=== PATIENT | male | born 1980 | race Caucasian/White ===

== ENCOUNTER 2017-04-08 07:50 | Inpatient (IN) | payer BC ==
[~2017-04-08 07:50] MED LIST: BUPIVACAINE 0.5% (SDV) 30 ML, morphine SULFATE (PF) 8 MG, EPINEPHrine 0.3 MG, KETOROLAC... IRR; SOD CHLORIDE 0.9% 100 ML, TRANEXAMIC ACID 3,000 MG IRR
[2017-04-08] MEDS: DEXAMETHASONE 1 MG TAB PO (08:45)
[2017-04-08] MEDS: GABAPENTIN 300 MG CAP PO ×2 (08:45→21:02)
[2017-04-08] MEDS: traMADol 50 MG TAB PO (08:45)
[2017-04-08] MEDS ORDERED: morphine SULFATE/PF (10 MG/10 ML) INJ (09:53)
[2017-04-08] MEDS ORDERED: metroNIDAZOLE 500 MG/NS (PMX) 100 ML IVPB (09:53)
[2017-04-08] MEDS ORDERED: MIDAZOLAM 1 MG/ML 2 ML INJ ×2 (09:59)
[2017-04-08] MEDS ORDERED: LIDOCAINE 2% (SDV) 5 ML INJ (10:00)
[2017-04-08] MEDS ORDERED: ROCURONIUM 50 MG INJ (10:00)
[2017-04-08] MEDS ORDERED: PROPOFOL 20 ML (10:00)
[2017-04-08] MEDS: CA CHLORIDE 10% 10 ML SYRINGE (11:30)
[2017-04-08] MEDS: THROMBIN 5000 UNIT VIAL (11:30)
[2017-04-08] MEDS: POLYMYXIN/BACITRACIN 1L IRRIG (11:31)
[2017-04-08] MEDS ORDERED: NEOSTIGMINE 3 MG/3 ML SYRINGE (12:20)
[2017-04-08] MEDS ORDERED: GLYCOPYRROLATE 0.4 MG INJ (12:20)
[2017-04-08] MEDS ORDERED: DEXAMETHASONE 4 MG/ML 1 ML INJ (12:27)
[2017-04-08] MEDS ORDERED: OXYCODONE/ACETAMINOPHEN (5/325) TAB PO (12:30)
[2017-04-08] MEDS ORDERED: DIPHENHYDRAMINE 50 MG INJ IV ×2 (12:30→13:00)
[2017-04-08] MEDS ORDERED: morphine 2 MG INJ IV ×2 (12:30)
[2017-04-08] MEDS ORDERED: KETOROLAC 15 MG INJ IV (12:30)
[2017-04-08] MEDS ORDERED: MAGNESIUM HYDROXIDE 30ML CUP PO (12:30)
[2017-04-08] MEDS ORDERED: ACETAMINOPHEN 500 MG TAB PO (12:30)
[2017-04-08] MEDS: CEFAZOLIN 2 GM/50 ML (PMX) 50 ML IVPB (13:00)
[2017-04-08] MEDS ORDERED: ONDANSETRON 4 MG INJ IV (13:00)
[2017-04-08] MEDS ORDERED: HYDROmorphONE 0.5 MG/0.5 ML SYG IV ×2 (13:00)
[2017-04-08] MEDS ORDERED: ZOLPIDEM 5 MG TAB PO (13:00)
[2017-04-08] MEDS ORDERED: NALOXONE (0.4 MG/ML) INJ IV (13:00)
[2017-04-08] MEDS ORDERED: KETOROLAC 30 MG INJ IV (13:00)
[2017-04-08] MEDS: TRANEXAMIC ACID 1,000 MG in DEXTROSE 5% 100 ML IVPB (13:01)
[2017-04-08] MEDS: TRANEXAMIC ACID 1,000 MG in DEXTROSE 5% 100 ML IV (13:11)
[2017-04-08] MEDS: CEFAZOLIN 1 GM/50 ML (PMX) 50 ML IVPB ×2 (14:20→22:51)
[2017-04-08] MEDS: LACTATED RINGER'S 1,000 ML IV ×2 (14:20→22:08)
[2017-04-08 14:59] LABS: ADD MAN DIFF? NO
[2017-04-08 15:01] LABS: WHITE BLOOD COUNT 20.8 10^3/ul (4.8-10.8)
[2017-04-08 15:01] LABS: BASOPHILS % 0.2 % (0.0-2.0); HEMATOCRIT 34.4 % (42.0-52.0); HEMOGLOBIN 11.8 g/dl (14.0-18.0); LYMPHOCYTES # 0.7 10^3/ul (0.8-2.9); LYMPHOCYTES % 3.2 % (15.0-51.0); MEAN CORPUSCULAR HGB CONC 34.3 g/dl (32.0-37.0); MEAN CORPUSCULAR VOLUME 90.3 fl (82.0-101.0); MEAN PLATELET VOLUME 10.7 fl (7.4-10.4); MONOCYTE # 0.4 10^3/ul (0.3-0.9); MONOCYTES % 2.1 % (0.0-11.0); NEUTROPHIL # 19.5 10^3/ul (1.6-7.5); NEUTROPHILS % 93.8 % (39.0-77.0); PLATELET COUNT 221 10^3/UL (140-415); RED BLOOD COUNT 3.81 10^6/ul (4.70-6.10); RED CELL DISTRIBUTION WIDTH 12.7 % (11.5-14.5)
[2017-04-08] MEDS: DEXAMETHASONE 2 MG TAB PO ×2 (17:30→23:01)
[2017-04-08] MEDS: ONDANSETRON 4 MG INJ IV (17:31)
[2017-04-08] MEDS: SENNA/DOCUSATE NA (8.6MG/50MG) TAB PO (21:02)
[2017-04-09] MEDS: LACTATED RINGER'S 1,000 ML IV (02:22)
[2017-04-09 05:29] LABS: ADD MAN DIFF? NO
[2017-04-09 05:37] LABS: BASOPHILS % 0.1 % (0.0-2.0); HEMATOCRIT 33.1 % (42.0-52.0); HEMOGLOBIN 11.1 g/dl (14.0-18.0); LYMPHOCYTES # 0.9 10^3/ul (0.8-2.9); LYMPHOCYTES % 5.8 % (15.0-51.0); MEAN CORPUSCULAR HEMOGLOBIN 29.8 pg (29.0-33.0); MEAN CORPUSCULAR HGB CONC 33.5 g/dl (32.0-37.0); MEAN PLATELET VOLUME 11.4 fl (7.4-10.4); MONOCYTE # 1.4 10^3/ul (0.3-0.9); MONOCYTES % 9.1 % (0.0-11.0); NEUTROPHIL # 13.4 10^3/ul (1.6-7.5); NEUTROPHILS % 84.4 % (39.0-77.0); PLATELET COUNT 199 10^3/UL (140-415); RED BLOOD COUNT 3.72 10^6/ul (4.70-6.10); RED CELL DISTRIBUTION WIDTH 12.4 % (11.5-14.5)
[2017-04-09 05:37] LABS: WHITE BLOOD COUNT 15.9 10^3/ul (4.8-10.8)
[2017-04-09] MEDS: CEFAZOLIN 1 GM/50 ML (PMX) 50 ML IVPB (06:09)
[2017-04-09] MEDS: DEXAMETHASONE 2 MG TAB PO ×2 (06:09→11:40)
[2017-04-09] MEDS: OXYCODONE/ACETAMINOPHEN (5/325) TAB PO ×3 (09:13→16:43)
[2017-04-09] MEDS: SENNA/DOCUSATE NA (8.6MG/50MG) TAB PO (09:13)
[2017-04-09] MEDS: ASPIRIN 81 MG TAB PO (09:13)
[2017-04-09] MEDS ORDERED: ZOLPIDEM 5 MG TAB PO (13:00)
== END 2017-04-09 17:15 | disposition home or self-care (01) | DRG 470 ==
LOC: REC 07:50 → MS1 13:18
PROVIDERS: Orthopaedic Surgery
PROC: 0SRB04A Replacement of Left Hip Joint with Ceramic on Polyethylene Synthetic Substitute, Uncemented, Open Approach (ICD-10-PCS; principal; 2017-04-08 10:00)
PROC: 0QP704Z Removal of Internal Fixation Device from Left Upper Femur, Open Approach (ICD-10-PCS; 2017-04-08 10:00)
DX: M16.52 Unilateral post-traumatic osteoarthritis, left hip (principal); Z87.81 Personal history of (healed) traumatic fracture; Z98.890 Other specified postprocedural states
CPT/HCPCS: 72170; 73530; 85025; 86999; 87086; 97116; 97163; 97530